=== PATIENT | female | born 1960 | race Caucasian/White ===

== ENCOUNTER 2020-06-18 12:52 | Outpatient (CLI) | payer BC, SELFPAY ==
--- NOTE | ~2020-06-18 | XR_ITS ---
XR chest 2V 06/18/2020 13:27 Indication: Possible Covid infection. Lower lobe pneumonia. Cough. Procedure: 2 view chest Comparison: 04/15/2017 Findings: Bibasilar infiltrates peripherally. Heart size normal. No edema, pleural effusion or pneumo thorax. No acute osseous abnormality. Impression: 1: Peripheral bibasilar infiltrates, suspicious for pneumonia. Reviewed, dictated and finalized at location A. ICAL LABORATORY TECHNICIAN Impression: 1: Peripheral bibasilar infiltrates, suspicious for pneumonia.
[2020-06-18 13:20] LABS: Basophils Percent Auto 0.2 % (0.2-1.2); Eosinophils Percent Auto 0.6 % (0-4.4); Hematocrit 40.8 % (37.0-47.0); Hemoglobin 13.7 g/dL (12.0-15.0); Immature Granulocyte Absolute 0.01 K/mm3 (0.00-0.031); Immature Granulocyte Percent A 0.2 % (0-0.5); Lymphocytes Absolute Auto 0.85 K/mm3 (0.9-3.2); Mean Corpuscular HGB Conc 33.6 g/dl (32-36); Mean Corpuscular Hemoglobin 28.8 pg (26-34); Mean Corpuscular Volume 85.9 fl (80-100); Mean Platelet Volume 9.9 fl (7.4-10.4); Monocytes Absolute Auto 0.3 K/mm3 (0.1-0.6); Monocytes Percent Auto 6.8 % (2.6-8.5); Neutrophils Absolute Auto 3.5 K/mm3 (1.3-6.7); Neutrophils Percent Auto 74.2 % (45.5-73.1); Platelet Count Result 160 k/mm3 (150-375); Red Blood Count 4.75 M/mm3 (4.2-5.4); Red Cell Distribution Width 12.8 % (11.5-14.5); White Blood Count 4.7 K/mm3 (4.5-10.0)
[2020-06-18 13:36] LABS: D Dimer 0.48 ug/mL (<0.48)
[2020-06-18 13:40] LABS: Alanine Aminotransferase 19 U/L (4-35); Alkaline Phosphatase 93 U/L (38-126); Anion Gap 9 mmol/L (8-16); Aspartate Amino Transferase 26 U/L (14-36); Bilirubin,Total 0.4 mg/dL (0.2-1.3); Blood Urea Nitrogen 14 mg/dL (7-17); CRP 1.2 mg/dL (<1.0); Calcium 9.5 mg/dL (8.4-10.2); Carbon Dioxide 26 mmol/L (22-30); Chloride 102 mmol/L (98-107); Estimated Glomerular Filt Rate 51; Glucose 114 mg/dL (65-105); Potassium 3.8 mmol/L (3.4-5.0); Sodium 137 mmol/L (137-145)
[2020-06-18 15:36] LABS: Lactate Dehydrogenase 481 U/L (313-618)
== END 2020-06-18 12:53 | disposition home or self-care (01) ==
PROVIDERS: PCP Internal Medicine; Visit Provider Internal Medicine
DX: J18.9 Pneumonia, unspecified organism (principal); R91.8 Other nonspecific abnormal finding of lung field
CPT/HCPCS: 36415; 71046; 80053; 83615; 85025; 85380; 86140

== ENCOUNTER 2020-06-21 13:55 | Observation (INO) | payer BC, SELFPAY ==
--- NOTE | ~2020-06-21 | XR_ITS ---
XR chest 1V portable 06/21/2020 15:17 Indication: Covid Positive. Shortness of breath. Wheezing. Procedure: AP portable chest Comparison: 04/15/2017 Findings: There are bibasilar infiltrates or heart size normal. There is atherosclerosis. No acute os seous abnormality. Impression: 1: Bibasilar infiltrates may represent atelectasis and/or pneumonia. Reviewed, dictated and finalized at location A. NCE C[employer] DISPLAY BUILDER Impression: 1: Bibasilar infiltrates may represent atelectasis and/or pneumonia.
[2020-06-21 13:59] VITALS: BP 141/85; PULSE 125; RESP 28; TEMP 35.9; O2SAT 97
--- NOTE | 2020-06-21 14:53 | ECG_ITS ---
Measurements Intervals [place] Rate: 105 P: 30 OK: 169 QRS: 18 QRSD: 88 T: 32 QT: 328 QTc: 434 Interpretive Statements SINUS TACHYCARDIA BORDERLINE ECG Electronically Signed On 06-21-2020 16:49:07 BLOCK CHOPPER HAND by Jose Ashley D.O.
[2020-06-21 15:14] LABS: Basophils Percent Auto 0.2 % (0.2-1.2); Eosinophils Percent Auto 0.4 % (0-4.4); Hematocrit 39.8 % (37.0-47.0); Hemoglobin 13.1 g/dL (12.0-15.0); Immature Granulocyte Absolute 0.02 K/mm3 (0.00-0.031); Immature Granulocyte Percent A 0.4 % (0-0.5); Lymphocytes Absolute Auto 0.84 K/mm3 (0.9-3.2); Lymphocytes Percent Auto 15.1 % (18.3-44.2); Mean Corpuscular HGB Conc 32.9 g/dl (32-36); Mean Corpuscular Hemoglobin 28.6 pg (26-34); Mean Corpuscular Volume 86.9 fl (80-100); Mean Platelet Volume 10.1 fl (7.4-10.4); Monocytes Absolute Auto 0.4 K/mm3 (0.1-0.6); Monocytes Percent Auto 7.5 % (2.6-8.5); Neutrophils Absolute Auto 4.3 K/mm3 (1.3-6.7); Neutrophils Percent Auto 76.4 % (45.5-73.1); Platelet Count Result 190 k/mm3 (150-375); Red Blood Count 4.58 M/mm3 (4.2-5.4); Red Cell Distribution Width 12.9 % (11.5-14.5); White Blood Count 5.6 K/mm3 (4.5-10.0)
[2020-06-21 15:27] LABS: Anion Gap 7 mmol/L (8-16); Blood Urea Nitrogen 13 mg/dL (7-17); Calcium 9.6 mg/dL (8.4-10.2); Carbon Dioxide 27 mmol/L (22-30); Chloride 104 mmol/L (98-107); Estimated CRCL calculation 63 ml/min; Estimated Glomerular Filt Rate > 60; Glucose 119 mg/dL (65-105); Potassium 3.7 mmol/L (3.4-5.0); Sodium 138 mmol/L (137-145)
--- NOTE | 2020-06-21 16:06 | ED.SOB ---
HPI - SOB/Dyspnea General Chief Complaint: Shortness of Breath/Dyspnea Stated Complaint: + COVID, not better Time Seen by Provider: 06/21/20 14:22 Source: patient Mode of arrival: ambulatory Limitations: no limitations History of Present Illness HPI Narrative: 60-year-old with a history of asthma, hyperlipidemia been feeling sick since June 04 had initial Covid test 10 days after which was negative however it was repeated 2 days after and turned out to be positive since this morning patient has been having more shortness of breath and cough. She states that her oxygen saturations were 88 to 90% on room air. Patient states that she had outpatient lab and x-rays done which showed pneumonia. She was advised to come to the ER by her primary doctor for possible admission. She presently denies any nausea, vomiting or abdominal pain or chest pain MD elicited complaint: shortness of breath and cough Pertinent past history: asthma Timing: constant Severity: moderate Exacerbating factors: exertion Relieving factors: rest Known history of: asthma Related Data Home oxygen amount: none Home Medications Medication Instructions Recorded Confirmed albuterol sulfate 06/21/20 amitriptyline 30 mg 06/21/20 amlodipine 06/21/20 atorvastatin 06/21/20 fluticasone furoate-vilanterol INHALATION 06/21/20 [Breo Ellipta] Allergies Allergy/AdvReac Type Severity Reaction Status Date / Time levofloxacin Allergy Unknown Unknown Verified 06/21/20 16:04 nitrofurantoin Allergy Unknown Unknown Verified 06/21/20 16:04 loteprednol [From Alrex] Allergy Unknown Verified 06/21/20 16:04 Review of Systems Review of Systems: All systems reviewed & are unremarkable except as noted in HPI and below Constitutional: Constitutional: Reports no additional constitutional complaints Cardiovascular: Cardiovascular: Reports no additional cardiovascular complaints Gastrointestinal: Gastrointestinal: Reports no additional gastrointestinal complaints Musculoskeletal: Musculoskeletal: Reports no additional musculoskeletal complaints Psychiatric: Psychiatric: Reports no additional psychiatric complaints Allergic/Immunologic: Allergic/Immunologic: Reports no additional allergic/immunologic complaints [facility] Family History Family History Mother Family history of elevated blood lipids Family history of malignant neoplasm of breast in first degree relative Asthma Family history of allergic disorder Father Family history of diabetes mellitus in first degree relative Family history of congestive heart failure Diabetes mellitus Social History Social History Smoking status: Never smoker Alcohol intake: current Exam Narrative: Exam Narrative: GENERAL: Well-appearing, well-nourished, and in no acute distress. HEAD: Normocephalic, atraumatic. EYES: PERRLA and EOMI NECK: Supple. CHEST: Clear to auscultation. No respiratory distress. HEART: Regular rate and rhythm. No murmur heard. Normal peripheral pulses. ABDOMEN: Soft, nontender, nondistended, normal active bowel sounds. EXTREMITIES: Normal range of motion. No edema. SKIN: Warm, dry, no rash. NEURO: No focal deficits. Alert and oriented x3. PSYCH: Normal mood and affect. Course Course Emergency Course: Inform patient about her lab work x-rays we will admit her to the hospital for further management and she agreed Vital Signs Vital signs: Vital Signs Temperature 35.9 C L 06/21/20 13:59 Pulse Rate 125 H 06/21/20 13:59 Respiratory Rate 28 H 06/21/20 13:59 Blood Pressure 141/85 H 06/21/20 13:59 Pulse Oximetry 97 06/21/20 13:59 Temperature 35.9 C L 06/21/20 13:59 Pulse Rate 125 H 06/21/20 13:59 Respiratory Rate 28 H 06/21/20 13:59 Blood Pressure 141/85 H 06/21/20 13:59 Pulse Oximetry 97 06/21/20 13:59 MDM - SOB/Dyspnea Differential Diagnosis Differential diagnosis: Likely acute exacerbation of ch
[2020-06-21 16:07] VITALS: BP 127/83; PULSE 102; PULSE 90; RESP 24; TEMP 36.4; O2SAT 99
[2020-06-21 16:57] VITALS: BP 133/79; PULSE 89; RESP 27; TEMP 36.2; O2SAT 97
--- NOTE | 2020-06-21 16:58 | PC.NURSE ---
Blood cultures drawn. Patient was educated that one set will be drawn from each arm at separate times. Patient aware and in agreement with plan. Cultures taken from Right antecubital area and left forearm area.
[2020-06-21] MEDS: DEXAMETHASONE SOD PHOS INJ 4 MG/ML VIAL 6 MG IV PUSH (17:04)
[2020-06-21] MEDS: SODIUM CHLORIDE 0.9% IV 1,000 ML 75 ML IV CONT (17:07)
[2020-06-21 17:21] LABS: Alanine Aminotransferase 16 U/L (4-35)
[2020-06-21 17:36] VITALS: BP 130/72; PULSE 100; RESP 18; TEMP 36.8; O2SAT 100
[2020-06-21 17:44] VITALS: O2SAT 98
--- NOTE | 2020-06-21 17:52 | ADMGEN ---
This patient, Thi Hubbard, was admitted to [facility] Surg Room 321-01. Patient/family oriented to hospital policies and general routines including ID bracelet, bed and alarms, visiting hours, pain management, procedures, bathroom and other care routines, personal items, smoking policy, room service/diet, and visiting hours. Information on how to activate the Rapid Response Team has been discussed. Patient/Family are encouraged to report perceived risks to care and to ask questions if they do not understand what they are told or what they should do.
[2020-06-21] MEDS: REMDESIVIR 200 MG/NS 250 ML 200 MG/250 ML BAG 250 MG IVPB (18:16)
[2020-06-21 20:00] VITALS: BP 126/75; PULSE 95; RESP 20; TEMP 37.1; O2SAT 96
--- NOTE | 2020-06-21 23:38 | PM.IMHP ---
H&P: HPI History of Present Illness Date/Time: 06/21/20 23:38 Chief Complaint: shortness of breath. Narrative: This is a 60 year old female with known history of Asthma, HTN, and hyperlipidemia who presented to the hospital with a complaint of increased exertional shortness of breath after testing positive for COVID-19 this past Wednesday. Initially she began to feel sick in the beginning of June and reported that she had a loss of taste and chills and body aches at that time. Now she has a productive cough of dark sputum and worsening shortness of breath. Her PCP encouraged her to come to the hospital for possible admisison. She found that she was desaturating down to 88% on room air at home on pulse oximetry. The patient denies any fevers, abdominal pain, nausea, vomiting, diarrhea, dysuria, rectal bleeding or LE swelling. She does admit to having some pleuritic chest pain which has been ongoing and she attributes this to her coughing. The patient was evaluated in the ER and CXR demonstrated bibasilar infiltrates may represent atelectasis and/or pneumonia. She has not required any supplemental oxygen since she has been at the hospital. On my encounter with her she states she is feeling much better. No other complaints. Review of Systems Review of Systems: All systems reviewed & are unremarkable except as noted in HPI and below PMFSH Past Medical History Medical History (Updated 06/21/20 @ 23:47 by Vini Clement MD) Asthma HTN (hypertension) with goal to be determined Hyperlipidemia Family History Family History Mother Family history of elevated blood lipids Family history of malignant neoplasm of breast in first degree relative Asthma Family history of allergic disorder Father Family history of diabetes mellitus in first degree relative Family history of congestive heart failure Diabetes mellitus Social History Social History Smoking status: Never smoker Second hand tobacco smoke exposure: No Alcohol intake: current Drinks per week: 1 Substance use: never Gender identity (if verbalized by the patient): Female Spiritual care concerns: No Comments past surgical history is reviewed and noncontributory. Meds Home Medications and Allergies Home Medications Medication Instructions Recorded Confirmed Type Acidophilus Probiotic 1 tablet PO DAILY 06/21/20 06/21/20 History albuterol sulfate 2.5 mg INHALATION Q4-5H 06/21/20 06/21/20 History amitriptyline 30 mg PO DAILY 06/21/20 06/21/20 History amlodipine 5 mg PO DAILY 06/21/20 06/21/20 History aspirin 81 mg PO DAILY 06/21/20 06/21/20 History atorvastatin 20 mg PO DAILY 06/21/20 06/21/20 History cholecalciferol (vitamin D3) 2,000 mg PO DAILY 06/21/20 06/21/20 History famotidine [Pepcid] 20 mg PO DAILY 06/21/20 06/21/20 History fluticasone furoate-vilanterol 1 inh INHALATION DAILY 06/21/20 06/21/20 History [Breo Ellipta] Allergies Allergy/AdvReac Type Severity Reaction Status Date / Time levofloxacin Allergy Unknown Unknown Verified 06/21/20 18:13 nitrofurantoin Allergy Unknown Unknown Verified 06/21/20 18:13 loteprednol [From Alrex] Allergy Unknown Verified 06/21/20 18:13 Vital Signs Vital Signs - 24 hr 06/21/20 13:59 06/21/20 16:07 06/21/20 16:57 Temperature 35.9 C L 36.4 C L 36.2 C L Pulse Rate 125 H 90 89 Respiratory Rate 28 H 24 H 27 H Blood Pressure 141/85 H 127/83 133/79 Pulse Oximetry 97 99 97 06/21/20 17:36 06/21/20 17:44 06/21/20 20:00 Temperature 36.8 C 37.1 C Pulse Rate 100 95 Respiratory Rate 18 20 Blood Pressure 130/72 126/75 Pulse Oximetry 100 98 96 Exam Const: General: cooperative, no acute distress, alert, awake and ill appearing Nutritional Appearance: well nourished Orientation/consciousness: patient oriented x3 HENMT: Head: normal to inspection General nose exam: Normal
[2020-06-22] MEDS: AMITRIPTYLINE HCL 10 MG TABLET 30 MG PO (00:40)
[2020-06-22 00:56] VITALS: BP 119/70; PULSE 99; RESP 20; TEMP 36.4; O2SAT 97
[2020-06-22] MEDS: ALBUTEROL SULFATE (*SP) AEROSOL 1 PUFF 2 PUFF INHALATION ×2 (02:38→11:32)
[2020-06-22 02:46] VITALS: O2SAT 96
[2020-06-22 04:00] VITALS: BP 117/58; PULSE 85; RESP 20; TEMP 36.4; O2SAT 95
--- NOTE | 2020-06-22 05:55 | PHAR ---
MARIVEL ELLIPTA (fluticasone furoate 200 mcg/vilanterol 25 mcg) VERIFIED IN PHARMACY AND SENT BACK TO FLOOR. 7 DOSES REMAINING AT THE TIME OF THIS NOTE (DAP)
[2020-06-22 06:57] LABS: Basophils Percent Auto 0.3 % (0.2-1.2); Hematocrit 34.5 % (37.0-47.0); Hemoglobin 11.5 g/dL (12.0-15.0); Immature Granulocyte Absolute 0.01 K/mm3 (0.00-0.031); Immature Granulocyte Percent A 0.3 % (0-0.5); Lymphocytes Absolute Auto 0.56 K/mm3 (0.9-3.2); Lymphocytes Percent Auto 15.9 % (18.3-44.2); Mean Corpuscular HGB Conc 33.3 g/dl (32-36); Mean Corpuscular Hemoglobin 28.7 pg (26-34); Mean Platelet Volume 9.8 fl (7.4-10.4); Monocytes Absolute Auto 0.2 K/mm3 (0.1-0.6); Monocytes Percent Auto 6.3 % (2.6-8.5); Neutrophils Absolute Auto 2.7 K/mm3 (1.3-6.7); Neutrophils Percent Auto 77.2 % (45.5-73.1); Platelet Count Result 190 k/mm3 (150-375); Red Blood Count 4.01 M/mm3 (4.2-5.4); Red Cell Distribution Width 12.6 % (11.5-14.5); White Blood Count 3.5 K/mm3 (4.5-10.0)
[2020-06-22] MEDS: SODIUM CHLORIDE 0.9% IV 1,000 ML 75 ML IV CONT (07:10)
[2020-06-22 07:17] LABS: Alanine Aminotransferase 15 U/L (4-35); Albumin Level 3.4 g/dL (3.5-5.1); Alkaline Phosphatase 79 U/L (38-126); Anion Gap 8 mmol/L (8-16); Aspartate Amino Transferase 23 U/L (14-36); Bilirubin,Total 0.4 mg/dL (0.2-1.3); Blood Urea Nitrogen 13 mg/dL (7-17); Calcium 8.4 mg/dL (8.4-10.2); Carbon Dioxide 22 mmol/L (22-30); Chloride 108 mmol/L (98-107); Estimated CRCL calculation 71 ml/min; Estimated Glomerular Filt Rate > 60; Glucose 131 mg/dL (65-105); Potassium 4.4 mmol/L (3.4-5.0); Sodium 138 mmol/L (137-145)
[2020-06-22 08:00] VITALS: BP 102/60; PULSE 70; RESP 18; TEMP 36.8; O2SAT 94; O2SAT 97
[2020-06-22] MEDS: ACIDOPHILUS/BULGARICUS CHEWABLE TABLET 1 TABLET PO (08:51)
[2020-06-22] MEDS: amLODIPine BESYLATE 5 MG TABLET PO (08:51)
[2020-06-22] MEDS: CHOLECALCIFEROL 1,000 UNITS TABLET 2000 UNITS PO (08:51)
[2020-06-22] MEDS: FAMOTIDINE 20 MG TABLET PO (08:51)
[2020-06-22] MEDS: ATORVASTATIN 20 MG TABLET PO (08:51)
[2020-06-22] MEDS: ENOXAPARIN 40 MG/0.4 ML SYRINGE SUB-Q (08:52)
[2020-06-22] MEDS: ASPIRIN 81 MG ENTERIC TABLET PO (11:27)
[2020-06-22 12:00] VITALS: BP 108/56; PULSE 89; RESP 22; TEMP 36.9; O2SAT 97
--- NOTE | 2020-06-22 13:17 | PM.DS ---
DS: Admitting Diagnosis Admitting Diagnosis Admitting Diagnosis: COVID pneumonia DS: Discharge Diagnosis Discharge Diagnosis (1) Pneumonia due to 2019-nCoV: Code(s): U07.1 - COVID-19; J12.89 - Other viral pneumonia Status: Acute Assessment and Plan: The patient has been placed in observation status.She has not required any oxygen during her stay and has maintained adequate saturations. She was given one dose of remdesivir in ED, although patient not on supplemental oxygen and outside window from when symptoms first started. Dexamethasone initiated in ED as well. Remdesivir has been discontinued. Clinically she has improved and states she feels much better. Will send home with 5 days of dexamethasone for underlying asthma. Continue supportive care. Rec follow up with PCP in 1-2 weeks Rec continue to monitor O2 sats at home (2) HTN (hypertension) with goal to be determined: Code(s): I10 - Essential (primary) hypertension Status: Chronic Assessment and Plan: BP 100s sys Continue amlodipine. (3) Hyperlipidemia: Qualifiers: Hyperlipidemia type: unspecified Qualified Code(s): E78.5 - Hyperlipidemia, unspecified Code(s): E78.5 - Hyperlipidemia, unspecified Status: Chronic Assessment and Plan: Continue atorvastatin PO (4) Asthma: Qualifiers: Asthma complication type: unspecified Asthma persistence: unspecified Asthma severity: unspecified severity Qualified Code(s): J45.909 - Unspecified asthma, uncomplicated Code(s): J45.909 - Unspecified asthma, uncomplicated Status: Chronic Assessment and Plan: Continue bronchodilators and breo. Will send with 5 day course of dexamethasone 6 mg DS: Summary Hospital Course Reason for hospitalization: COVID pneumonia Hospital Course: Date of arrival: 06/21/20 Date of discharge: 06/22/20 Patient is a 60 yo F with history of asthma, HTN, and hyperlipidemia who presented to the hospital on 06/21 with a complaint of increased exertional shortness of breath after testing positive for COVID-19 on 06/18. Her symptoms had started on 06/04 with SOB and loss of taste and smell. While in the ED, patient was maintaining adequate O2 saturations on RA. CXR showed similar findings of bibasilar lung infiltrates suggesting pneumonia. Patient was given one dose of Remdesivir, dexamethasone, and azithromycin. Patient admitted under this setting of COVID pneumonia. Please see H&P for further details. Patient was admitted to the hospitalist service for further management/treatment. Remdesivir was discontinued as patient did not meet criteria for treatment. Azithromycin was discontinued as it was felt bacterial pneumonia felt to be less likely. Given her asthma and shortness of breath, it was felt to be prudent continue dexamethasone after discharge (was to continue through 06/27). Patient had significant improvement in her respiratory symptoms and remained on RA throughout her stay. She was to be discharged home with follow up with PCP Patient and family were agreeable and comfortable with plan for discharge. Patient hemodynamically stable and in improved condition for discharge on 06/22 Status at Discharge Overall status at discharge: patient is progressing back to baseline Time Spent with Patient Time attestation: Total time spent providing and/or coordinating discharge services: Time spent: Greater than 30 minutes Exam Narrative: Exam Narrative: General: Patient sitting upright in bed in no acute distress. HEENT: Normocephalic, EOMI, oral mucosa moist. Cardiovascular: Rate and rhythm are regular. No notable murmur, rub, or gallop. Respiratory: Lungs clear to auscultation all parker. Diminished breath sounds. Non-labo
[2020-06-22] MEDS: DEXAMETHASONE 2 MG TABLET 6 MG PO (15:46)
== END 2020-06-22 16:30 | disposition home or self-care (01) ==
LOC: ANHED 16:12 → ANH3MEDSUR 17:10
PROVIDERS: Admitting Provider Internal Medicine; Emergency Provider Family Medicine; PCP Internal Medicine; Visit Provider Physician Assistant
DX: U07.1 COVID-19 (principal); J12.89 Other viral pneumonia; J45.909 Unspecified asthma, uncomplicated; I10 Essential (primary) hypertension; E78.5 Hyperlipidemia, unspecified
CPT/HCPCS: 36415; 71045; 80048; 80053; 84460; 85025; 87040; 93005; 94640; 96361; 96365; 96367; 96372; 96375; 99285; A9270; G0378; J0456; J1100; J1650; J7030; J8540

== ENCOUNTER → 2021-03-27 11:25 | Outpatient (CLI) | payer BC, SELFPAY ==
--- NOTE | ~2021-03-27 | DEXA_ITS ---
Bone Density Report Name: Thi Hubbard Age: 61 Sex: Female Ethnicity: White Date of : 1960 Indication: osteopenia; height loss; asthma or emphysema; hysterectomy; postmenopausal Referring Provider: BIPIN, BENNY Mathews Study: Bone densitometry was performed. Exam Date: March 27, 2021 Accession number: [id number] Bone Density: Region BMD T-score Z-score Classification AP Spine (L1-L4) 0.834 -1.9 -0.4 Osteopenia Femoral Neck (Left) 0.678 -1.5 -0.2 Osteopenia Total Hip (Left) 0.858 -0.7 0.3 Normal Femoral Neck (Right) 0.630 -2.0 -0.6 Osteopenia Total Hip (Right) 0.786 -1.3 -0.3 Osteopenia Total Hip Mean 0.822 -1.0 0.0 Normal World Health Organization criteria for BMD impression classify patients as: Normal (T-score at or above -1.0), Osteopenia (T-score between -1.0 and -2.5), or Osteoporosis (T-score at or below -2.5). 10-year Fracture Risk(1): Major Osteoporotic Fracture 8.8% Hip Fracture 1.0% Reported Risk Factors: [place] (), Neck BMD=0.630, BMI=36.0 (1) FRAX(R) Version 3.08. Fracture probability calculated for an untreated patient. Fracture probability may be lower if the patient has received treatment. Previous Exams: Region Exam Age BMD T-score BMD Change BMD Change Date g/cm2 vs Baseline vs Previous AP Spine(L1-L4) 03/27/2021 61 0.834 -1.9 -0.032 -0.005 09/22/2018 58 0.839 -1.9 -0.026 -0.026 03/12/2016 56 0.866 -1.6 Total Hip(Left) 03/27/2021 61 0.858 -0.7 -0.038 0.005 09/22/2018 58 0.853 -0.7 -0.043 -0.043 03/12/2016 56 0.896 -0.4 Total Hip(Right) 03/27/2021 61 0.786 -1.3 -0.027 -0.010 09/22/2018 58 0.796 -1.2 -0.017 -0.017 03/12/2016 56 0.813 -1.1 *Denotes significance at 95% confidence level, LSC for AP Spine = 0.022 g/cm2, LSC for Total Hip = 0.027 g/cm2 Clinical Information Provided by Patient: Has used the following medications: Vitamin D, Calcium Has the following medical conditions: Asthma or Emphysema, Hysterectomy Patient maximum height was 64 Menopause Age: 46 No regular weight bearing exercise Drinks caffeinated beverages Onset of menses at age 11 Number of children 2 Impression: The patient has low bone mass, based on the Right Femoral Neck T-score. The patient has an estimated ten-year risk of hip fracture of 1% and an estimated ten-year risk of
== END ==
PROVIDERS: PCP Internal Medicine; Visit Provider Internal Medicine
DX: M85.88 Other specified disorders of bone density and structure, other site (principal); M85.851 Other specified disorders of bone density and structure, right thigh; M85.852 Other specified disorders of bone density and structure, left thigh
CPT/HCPCS: 77080

== ENCOUNTER 2023-02-28 14:14 | Emergency (ER) | payer BC, SELFPAY ==
--- NOTE | ~2023-02-28 | CT_ITS ---
EXAMINATION: CT abdomen pelvis w con DATE: 02/28/2023 15:58 INDICATION: Left lower quadrant abdominal pain TECHNIQUE: Computed tomography (CT) of the abdomen and pelvis was performed with 100 mL Omnipaque-350 intravenous contrast. Automated exposure control and iterative reconstruction technique were employe d. The dose-length product was 1062.17 mGy-cm. COMPARISON: 01/24/2016 FINDINGS: Mild discoid atelectasis at the lingula. Heart size is normal. No pericardial or pleural effusion. Sm all sliding-type hiatal hernia. 5 cm cyst in the right hepatic lobe and a few subcentimeter cysts in the left hepatic lobe. Small calcified gallstone at the dependent fundus of the normal gallbladder. S pleen, pancreas and bilateral adrenal glands are normal. 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 Scattered cortic al scarring and multiple parapelvic cysts at the left kidney, the former likely sequela of prior infe ction or infarction. 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 There is extensive colonic diverticulosis. There is dominant wall thickening and infl ammatory stranding along a short segment of mid sigmoid colon consistent with diverticulitis. Small b owel and appendix are normal. The uterus is not identified and has likely been surgically resected. B ladder and bilateral adnexa are unremarkable. Trace amount of likely reactive free fluid in the deep pelvis. No abscess or free intraperitoneal gas. No pathologically enlarged abdominal or pelvic lympha denopathy. Moderate lower thoracic and mild lumbar spondylosis. IMPRESSION: 1. Radiographically uncomplicated sigmoid diverticulitis. 2. Small sliding-type hiatal hernia. 3. Cholelithiasis. 4. 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 Reviewed, dictated and finalized at location A. IMPRESSION: 1. Radiographically uncomplicated sigmoid diverticulitis. 2. Small sliding-type hiatal hernia. 3. Cholelithiasis. 4. 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
[2023-02-28 14:16] VITALS: BP 132/79; PULSE 87; RESP 17; TEMP 36.6; O2SAT 99
[2023-02-28] MEDS: fentaNYL CITRATE INJ (*CRX) 100 MCG/2 ML VIAL 50 MCG IV PUSH (15:02)
[2023-02-28 15:03] LABS: Appearance Urine Clear (Clear); Bacteria Urine None Seen /hpf; Bilirubin Urine Negative (Negative); Blood Urine Negative (Negative); Color Urine Yellow (Yellow); Glucose Urine UA Negative (Negative); Ketones Urine Trace mg/dL (Negative); Leukocyte Esterase Ur Negative LEU/UL (Negative); Nitrate Urine Negative (Negative); Non Pathogenic Casts 0-2; Protein Urine 1+ mg/dL (Negative); RBC Urine 0-2 /hpf (0-2); Specific Grav Ur 1.032 (1.001-1.035); Squamous Epithelial Cell Urine None seen /hpf (Few); WBC Urine 0-5 /hpf; pH Urine 5.5 (5.0-9.0)
[2023-02-28 15:05] LABS: Add Urine Microscopic? YES
[2023-02-28 15:12] LABS: Basophils Percent Auto 0.3 % (0.2-1.2); Eosinophils Absolute Auto 0.2 K/mm3 (0-0.3); Eosinophils Percent Auto 1.7 % (0-4.4); Hematocrit 40.8 % (37.0-47.0); Hemoglobin 13.2 g/dL (12.0-15.0); Immature Granulocyte Absolute 0.03 K/mm3 (0.00-0.031); Immature Granulocyte Percent A 0.3 % (0-0.5); Lymphocytes Absolute Auto 1.58 K/mm3 (0.9-3.2); Lymphocytes Percent Auto 13.6 % (18.3-44.2); Mean Corpuscular HGB Conc 32.4 g/dl (32-36); Mean Corpuscular Hemoglobin 28.9 pg (26-34); Mean Corpuscular Volume 89.3 fl (80-100); Mean Platelet Volume 10.7 fl (7.4-10.4); Monocytes Percent Auto 8.7 % (2.6-8.5); Neutrophils Absolute Auto 8.8 K/mm3 (1.3-6.7); Neutrophils Percent Auto 75.4 % (45.5-73.1); Platelet Count Result 200 k/mm3 (150-375); Red Blood Count 4.57 M/mm3 (4.2-5.4); Red Cell Distribution Width 13.4 % (11.5-14.5); White Blood Count 11.6 K/mm3 (4.5-10.0)
[2023-02-28 15:22] LABS: Alanine Aminotransferase 18 U/L (6-35); Albumin Level 3.7 g/dL (3.5-5.1); Alkaline Phosphatase 69 U/L (38-126); Anion Gap 6 mmol/L (8-16); Aspartate Amino Transferase 21 U/L (14-36); Bilirubin,Total 0.7 mg/dL (0.2-1.3); Blood Urea Nitrogen 19 mg/dL (7-17); Calcium 8.8 mg/dL (8.4-10.2); Carbon Dioxide 22 mmol/L (22-30); Chloride 106 mmol/L (98-107); Estimated CRCL calculation 62 ml/min; Estimated Glomerular Filt Rate > 60; Glucose 115 mg/dL (65-110); Lipase 81 U/L (23-300); Potassium 3.9 mmol/L (3.4-5.0); Sodium 134 mmol/L (137-145)
--- NOTE | 2023-02-28 15:43 | ED.ABDPAIN ---
HPI - Abdominal Pain General Chief Complaint: Abdominal Pain Stated Complaint: diverticulitis flare up Time Seen by Provider: 02/28/23 14:21 History of Present Illness HPI narrative: Patient is a 63-year-old female who presents to the ER with reports of left-sided abdominal pain. Ongoing over the last 2 days. Feels similar to her previous diverticulitis. Reports sensation she needs to defecate or urinate but has in fact been constipated. No dysuria denies fevers or chills or sweats. Pain is worse with movement. No alleviating factors. Related Data Home Medications Medication Instructions Recorded Confirmed Acidophilus Probiotic 1 tablet PO DAILY 06/21/20 06/21/20 albuterol sulfate 2.5 mg/3 mL 2.5 mg inhalation Q4-5H 06/21/20 06/21/20 (0.083 %) solution for nebulization amitriptyline 10 mg tablet 30 mg PO DAILY 06/21/20 06/21/20 amlodipine 5 mg tablet 5 mg PO DAILY 06/21/20 06/21/20 aspirin 81 mg tablet 81 mg PO DAILY 06/21/20 06/21/20 atorvastatin 20 mg tablet 20 mg PO DAILY 06/21/20 06/21/20 cholecalciferol (vitamin D3) 2,000 mg PO DAILY 06/21/20 06/21/20 famotidine 20 mg tablet (Pepcid) 20 mg PO DAILY 06/21/20 06/21/20 fluticasone furoate 200 1 inh inhalation DAILY 06/21/20 06/21/20 mcg-vilanterol 25 mcg/dose inhalation powder (Breo Ellipta) Allergies Allergy/AdvReac Type Severity Reaction Status Date / Time levofloxacin Allergy Unknown Unknown Verified 06/21/20 18:13 nitrofurantoin Allergy Unknown Unknown Verified 06/21/20 18:13 loteprednol [From Alrex] Allergy Unknown Verified 06/21/20 18:13 Review of Systems Review of Systems: All systems reviewed & are unremarkable except as noted in HPI and below Constitutional: Constitutional: Denies chills, Denies fatigue and Denies fever(s) Cardiovascular: Cardiovascular: Denies chest pain, Denies rapid heart rate and Denies radiating jaw, neck or arm pain Respiratory: Respiratory: Denies cough and Denies dyspnea Gastrointestinal: Gastrointestinal: Reports abdominal pain, Reports constipation, Denies diarrhea, Denies nausea and Denies vomiting Genitourinary: Genitourinary: Reports nocturia, Denies dysuria, Denies pelvic pain and Denies flank pain PMFSH Past Medical History Medical History (Updated 02/28/23 @ 16:25 by Yunior Barrios MD) Asthma HTN (hypertension) with goal to be determined Hyperlipidemia Family History Family History Mother Family history of elevated blood lipids Family history of malignant neoplasm of breast in first degree relative Asthma Family history of allergic disorder Father Family history of diabetes mellitus in first degree relative Family history of congestive heart failure Diabetes mellitus Social History Social History Smoking status: Never smoker Second hand tobacco smoke exposure: No Alcohol intake: current Drinks per week: 1 Substance use: never Gender identity (if verbalized by the patient): Female Spiritual care concerns: No Exam Narrative: GENERAL: Well-appearing, well-nourished, and in no acute distress. HEAD: Normocephalic, atraumatic. EYES: PERRLA and EOMI. ENT: Nares clear, no rhinorrhea or epistaxis. Mucous membranes moist. NECK: Supple. CHEST: Clear to auscultation. No respiratory distress. HEART: Regular rate and rhythm. No murmur heard. Normal peripheral pulses. ABDOMEN: Soft, nontender, nondistended, normal active bowel sounds. EXTREMITIES: Normal range of motion. No edema. SKIN: Warm, dry, no rash. NEURO: No focal deficits. Alert and oriented x3. PSYCH: Normal mood and affect. Course Vital Signs Vital signs: Vital Signs Temperature 97.8 F 02/28/23 14:16 Pulse Rate 87 02/28/23 14:16 Respiratory Rate 17 02/28/23 14:16 Blood Pressure 132/79 02/28/23 14:16 Pulse Oximetry 99 02/28/23 14:16 Oxygen Delivery Room Air 02/28/23 14:16
== END 2023-02-28 17:00 | disposition home or self-care (01) ==
PROVIDERS: Emergency Provider Emergency Medicine; PCP Internal Medicine
DX: K57.92 Diverticulitis of intestine, part unspecified, without perforation or abscess without bleeding (principal); E78.5 Hyperlipidemia, unspecified; I10 Essential (primary) hypertension
CPT/HCPCS: 36415; 74177; 80053; 81001; 83690; 85025; 96374; 99284; J3010; Q9967

== ENCOUNTER → 2023-04-08 10:23 | Outpatient (CLI) | payer BC, SELFPAY ==
--- NOTE | ~2023-04-08 | DEXA_ITS ---
Bone Density Report Name: ISABEL MOONEY Age: 63 Sex: Female Ethnicity: White Date of : 1960 Indication: osteopenia; height loss; asthma or emphysema; hysterectomy; postmenopausal Referring Provider: GRAEME GRANDE Study: Bone densitometry was performed. Exam Date: April 08, 2023 Accession number: [id number] Bone Density: Region BMD T-score Z-score Classification AP Spine (L1-L4) 0.846 -1.8 -0.2 Osteopenia Femoral Neck (Left) 0.657 -1.7 -0.3 Osteopenia Total Hip (Left) 0.775 -1.4 -0.2 Osteopenia Femoral Neck (Right) 0.617 -2.1 -0.7 Osteopenia Total Hip (Right) 0.792 -1.2 -0.1 Osteopenia Total Hip Mean 0.784 -1.3 -0.2 Osteopenia World Health Organization criteria for BMD impression classify patients as: Normal (T-score at or above -1.0), Osteopenia (T-score between -1.0 and -2.5), or Osteoporosis (T-score at or below -2.5). 10-year Fracture Risk(1): Major Osteoporotic Fracture 9.6% Hip Fracture 1.3% Reported Risk Factors: [place] (), Neck BMD=0.617, BMI=35.7 (1) FRAX(R) Version 3.08. Fracture probability calculated for an untreated patient. Fracture probability may be lower if the patient has received treatment. Previous Exams: Region Exam Age BMD T-score BMD Change BMD Change Date g/cm2 vs Baseline vs Previous AP Spine(L1-L4) 04/08/2023 63 0.846 -1.8 -0.020 0.012 03/27/2021 61 0.834 -1.9 -0.032 -0.005 09/22/2018 58 0.839 -1.9 -0.026 -0.026 03/12/2016 56 0.866 -1.6 Total Hip(Left) 04/08/2023 63 0.775 -1.4 -0.121* -0.083 03/27/2021 61 0.858 -0.7 -0.038 0.005 09/22/2018 58 0.853 -0.7 -0.043 -0.043 03/12/2016 56 0.896 -0.4 Total Hip(Right) 04/08/2023 63 0.792 -1.2 -0.021 0.006 03/27/2021 61 0.786 -1.3 -0.027 -0.010 09/22/2018 58 0.796 -1.2 -0.017 -0.017 03/12/2016 56 0.813 -1.1 *Denotes significance at 95% confidence level, LSC for AP Spine = 0.022 g/cm2, LSC for Total Hip = 0.027 g/cm2 Clinical Information Provided by Patient: Has used the following medications: Vitamin D, Calcium Has the following medical conditions: Asthma or Emphysema, Hysterectomy Patient maximum height was 64 Menopause Age: 46 No regular weight bearing exercise Drinks caffeinated beverages Onset of menses at age 11 Number of children 1
== END ==
PROVIDERS: PCP Nurse Practitioner; Visit Provider Obstetrics & Gynecology Gynecology
DX: Z13.820 Encounter for screening for osteoporosis (principal); M85.88 Other specified disorders of bone density and structure, other site; M85.852 Other specified disorders of bone density and structure, left thigh; M85.851 Other specified disorders of bone density and structure, right thigh
CPT/HCPCS: 77080

== ENCOUNTER 2023-08-05 09:54 | Outpatient (CLI) | payer BC, SELFPAY ==
--- NOTE | ~2023-08-05 | MR_ITS ---
EXAMINATION: MR brain/brain stem wo con DATE: 08/05/2023 10:24 INDICATION: Memory loss. TECHNIQUE: Magnetic resonance imaging (MRI) of the brain and brainstem was performed without intraven ous contrast. COMPARISON: None. FINDINGS: There are scattered areas of nonspecific increased T2-weighted signal intensity in the cere bral white matter, which is within normal limits for the patient's age. There is no intracranial hemo rrhage, acute infarction, or abnormal intracranial mass lesion. The ventricles are normal in size. Th ere is mild mucosal thickening in the ethmoid sinuses. The orbits are normal. The mastoid air cells a re normal. IMPRESSION: 1. Normal aging brain. Reviewed, dictated and finalized at location A. CAL RECORDS TECH IMPRESSION: 1. Normal aging brain.
== END 2023-08-05 09:55 ==
PROVIDERS: PCP Internal Medicine; Visit Provider Internal Medicine
DX: R41.3 Other amnesia (principal)
CPT/HCPCS: 70551

== ENCOUNTER 2023-08-27 07:30 | Day surgery (SDC) | payer BC, SELFPAY ==
[2023-06-10 10:05] VITALS: BMI 34.5
--- NOTE | 2023-08-25 09:09 | SUR.PREOP ---
Patient called regarding upcoming procedure. Voicemail left regarding appointment times.
--- NOTE | 2023-08-26 20:38 | PM.HPGS ---
History of Present Illness History of Present Illness Consent: Risks, benefits, and alternatives have been discussed and questions answered. Patient agrees to proceed with procedure. Chief complaint: GERD,Dyskinesia of esophagus, Narrative: Thi Hubbard is a 63 year old female who has issues with GERD and a hiatal hernia.? She has a history of kidney disease status post nephrectomy, HPV, chronic cough, asthma, hypertension, history of diverticulitis, hyperlipidemia.? Surgical history including ectopic , myomectomy, , partial hysterectomy, and abdominal plasty.? She has a long history of chronic GERD.? She also has a chronic cough that is well controlled with amitriptyline 5 mg HS.? She had previously been on [id number] Nexium for a decade which did help her symptoms of GERD-but she stopped this several years ago after reading that can cause dementia and chronic kidney disease and with her only having 1 kidney she discontinued it.? She is now taking famotidine 20 mg daily and was taking 10-15 Tums nightly. EGD 6 years ago was unremmarkable She is also due for colon cancer screening. Review of Systems Review of Systems: All systems reviewed & are unremarkable except as noted in HPI and below PMFSH Past Medical History Medical History Asthma Dyskinesia of esophagus Gastroesophageal reflux disease Hiatal hernia HTN (hypertension) with goal to be determined Hx of diverticulitis of colon Hyperlipidemia Obesity Umbilical hernia Family History Family History Mother Family history of elevated blood lipids Family history of malignant neoplasm of breast in first degree relative Asthma Family history of allergic disorder Father Family history of diabetes mellitus in first degree relative Family history of congestive heart failure Diabetes mellitus Social History Social History Smoking status: Never smoker Second hand tobacco smoke exposure: No Alcohol intake: current Drinks per week: 2 Substance use: never Substance use type: does not use Living arrangements: with family Gender identity (if verbalized by the patient): Female Spiritual care concerns: No Meds Home Medications and Allergies Home Medications Medication Instructions Recorded Confirmed Type Acidophilus Probiotic 1 tablet PO DAILY 06/21/20 08/02/23 History albuterol sulfate 2.5 mg/3 mL 2.5 mg inhalation Q4-5H 06/21/20 08/02/23 History (0.083 %) solution for nebulization amlodipine 5 mg tablet 5 mg PO DAILY 06/21/20 08/02/23 History aspirin 81 mg tablet 81 mg PO DAILY 06/21/20 08/02/23 History atorvastatin 20 mg tablet 20 mg PO DAILY 06/21/20 08/02/23 History cholecalciferol (vitamin D3) 2,000 mg PO DAILY 06/21/20 08/02/23 History fluticasone furoate 200 1 inh inhalation DAILY 06/21/20 08/02/23 History mcg-vilanterol 25 mcg/dose inhalation powder (Breo Ellipta) alpha lipoic acid 600 mg tablet 600 mg PO DAILY 05/06/23 08/02/23 History calcium carbonate 600 mg calcium 600 mg PO DAILY 05/06/23 08/02/23 History (1,500 mg) tablet (Calcium) calcium polycarbophil 625 mg 1,250 mg PO DAILY 05/06/23 08/02/23 History tablet (FiberCon) famotidine 20 mg tablet 20 mg PO BID #60 tabs 05/06/23 08/02/23 Rx fexofenadine 60 mg tablet (Elysia 60 mg PO Q12H 05/06/23 08/02/23 History Allergy) amitriptyline 10 mg tablet 5 mg PO DAILY 06/10/23 08/02/23 History Allergies Allergy/AdvReac Type Severity Reaction Status Date / Time levofloxacin Allergy Unknown Unknown Verified 08/27/23 07:43 nitrofurantoin Allergy Unknown Unknown Verified 08/27/23 07:43 loteprednol [From Alrex] Allergy Unknown Verified 08/27/23 07:43 Exam Const: General: alert Orientation/consciousness: patient oriented x3 Resp: Auscultation: clear to auscultation bilaterally Cardi
[2023-08-27 07:43] VITALS: BP 123/78; PULSE 67; RESP 16; TEMP 36.3; O2SAT 98
[2023-08-27] MEDS: LACTATED RINGERS 1,000 ML 150 ML IV CONT (07:53)
--- NOTE | 2023-08-27 08:25 | WPDANESEPPF ---
Anes - Initial Pre Proc Eval Procedure: Operation Date: 08/27/23 09:00 Proposed Procedures p Esophagogastroduodenoscopy & Colonoscopy - Luis Gee MD Date/Time: 08/27/23 08:25 Surgeon: Luis Gee MD Pre Op Diagnosis: GERD,Dyskinesia of esophagus, Patient Data Age: 63 Gender: F Height: 1.6 m Weight: 86.8 kg Last Vital Signs Temp 97.3 F L 08/27/23 07:43 Pulse 67 08/27/23 07:43 Resp 16 08/27/23 07:43 BP 123/78 08/27/23 07:43 Pulse Ox 98 08/27/23 07:43 O2 Del Method Room Air 08/27/23 07:43 Allergies Allergy/AdvReac Type Severity Reaction Status Date / Time levofloxacin Allergy Unknown Unknown Verified 08/27/23 07:43 nitrofurantoin Allergy Unknown Unknown Verified 08/27/23 07:43 loteprednol [From Alrex] Allergy Unknown Verified 08/27/23 07:43 Home Medications Medication Instructions Recorded Confirmed Type Acidophilus Probiotic 1 tablet PO DAILY 06/21/20 08/02/23 History albuterol sulfate 2.5 mg/3 mL 2.5 mg inhalation Q4-5H 06/21/20 08/02/23 History (0.083 %) solution for nebulization amlodipine 5 mg tablet 5 mg PO DAILY 06/21/20 08/02/23 History aspirin 81 mg tablet 81 mg PO DAILY 06/21/20 08/02/23 History atorvastatin 20 mg tablet 20 mg PO DAILY 06/21/20 08/02/23 History cholecalciferol (vitamin D3) 2,000 mg PO DAILY 06/21/20 08/02/23 History fluticasone furoate 200 1 inh inhalation DAILY 06/21/20 08/02/23 History mcg-vilanterol 25 mcg/dose inhalation powder (Breo Ellipta) alpha lipoic acid 600 mg tablet 600 mg PO DAILY 05/06/23 08/02/23 History calcium carbonate 600 mg calcium 600 mg PO DAILY 05/06/23 08/02/23 History (1,500 mg) tablet (Calcium) calcium polycarbophil 625 mg 1,250 mg PO DAILY 05/06/23 08/02/23 History tablet (FiberCon) famotidine 20 mg tablet 20 mg PO BID #60 tabs 05/06/23 08/02/23 Rx fexofenadine 60 mg tablet (Elysia 60 mg PO Q12H 05/06/23 08/02/23 History Allergy) amitriptyline 10 mg tablet 5 mg PO DAILY 06/10/23 08/02/23 History Patient hx anesthesia problems: none Family hx anesthesia problems: none Results Review: All pre-operative results and documents have been reviewed as part of the pre-operative evaluation. [facility] Past Medical History Medical History Asthma Dyskinesia of esophagus Gastroesophageal reflux disease Hiatal hernia HTN (hypertension) with goal to be determined Hx of diverticulitis of colon Hyperlipidemia Obesity Umbilical hernia Family History Family History Mother Family history of elevated blood lipids Family history of malignant neoplasm of breast in first degree relative Asthma Family history of allergic disorder Father Family history of diabetes mellitus in first degree relative Family history of congestive heart failure Diabetes mellitus Social History Social History Smoking status: Never smoker Second hand tobacco smoke exposure: No Alcohol intake: current Drinks per week: 2 Substance use: never Substance use type: does not use Living arrangements: with family Gender identity (if verbalized by the patient): Female Spiritual care concerns: No Anes - Eval Final PreProcedure Day of Procedure 08/27/23 08:25 Patient weight: obese Heart: regular rate and rhythm Lungs: clear to auscultation Airway: Mallampati scale class II Neurological: alert and oriented Last oral intake: >/= 8 hours ASA classification: III Emergent: no Anesthetic plan: proceed Anesthesia type and monitoring: general GIVS and standard monitoring Results Review: All pre-operative results and documents have been reviewed as part of the pre-operative evaluation. Informed Consent: The patient's anesthetic plan and its attendant risks and benefits were discussed with the patient/family/POA. Questions were solicited and answers provi
--- NOTE | 2023-08-27 08:56 | SUR.OPER ---
EGD START: 848; END: 852. COLONOSCOPY START: 858; END: 910.
[2023-08-27 09:16] VITALS: BP 130/60; PULSE 68; RESP 20; O2SAT 99
[2023-08-27 09:26] VITALS: BP 109/65; PULSE 54; RESP 20; O2SAT 100
[2023-08-27 09:36] VITALS: BP 114/60; PULSE 60; RESP 20; O2SAT 100
== END 2023-08-27 09:53 | disposition home or self-care (01) ==
PROVIDERS: PCP Internal Medicine; Visit Provider Internal Medicine Gastroenterology
PROC: 0DJ08ZZ Inspection of Upper Intestinal Tract, Via Natural or Artificial Opening Endoscopic (ICD-10-PCS; CPT 43235; principal; 2023-08-27 09:00)
DX: Z12.11 Encounter for screening for malignant neoplasm of colon (principal); K57.30 Diverticulosis of large intestine without perforation or abscess without bleeding; K21.00 Gastro-esophageal reflux disease with esophagitis, without bleeding; K29.70 Gastritis, unspecified, without bleeding; K31.9 Disease of stomach and duodenum, unspecified; J45.909 Unspecified asthma, uncomplicated; I10 Essential (primary) hypertension; E78.5 Hyperlipidemia, unspecified; E66.9 Obesity, unspecified; Z68.33 Body mass index [BMI] 33.0-33.9, adult; Z79.51 Long term (current) use of inhaled steroids; Z79.82 Long term (current) use of aspirin; Z90.5 Acquired absence of kidney
CPT/HCPCS: 45378; 43239; 87081; 88305; J2001; J2704; J7120

== ENCOUNTER 2024-01-10 13:29 | Outpatient (CLI) | payer BC, SELFPAY ==
--- NOTE | ~2024-01-10 | XR_ITS ---
3 VIEWS THORACIC SPINE Ordering provider: Janet No MD History: . Thoracic back pain . Comparison: None. FINDINGS: VERTEBRAL BODIES: Normal height and alignment. No visible fracture or subluxation. Degenerative yeh es with marginal osteophytes. DISK SPACES: Narrowing of the disc spaces at multiple levels. SOFT TISSUES: Normal. IMPRESSION: No acute osseous abnormality of the thoracic spine. Reviewed, dictated and finalized at location A.
== END 2024-01-10 13:30 ==
PROVIDERS: PCP Internal Medicine; Visit Provider Internal Medicine
DX: M54.6 Pain in thoracic spine (principal)
CPT/HCPCS: 72072

== ENCOUNTER 2024-04-20 12:49 | Outpatient (CLI) | payer BC, SELFPAY ==
--- NOTE | ~2024-04-20 | MR_ITS ---
EXAMINATION: MR thoracic spine wo con DATE: 04/20/2024 13:21 INDICATION: Thoracic back pain. TECHNIQUE: Magnetic resonance imaging (MRI) of the thoracic spine was performed without intravenous c ontrast. COMPARISON: Thoracic spine radiographs 01/10/2024 FINDINGS: Alignment is normal. There is mild chronic anterior wedging of T5-L1 vertebral bodies. Ther e is a hemangioma in T10 vertebral body. There is moderately decreased disc height at T5-T6, severely decreased disc height from T6-T7 through T8-9-T10, moderately decreased disc height at T10-T11, and mildly decreased disc height at T11-T12. There is a central protrusion at T5-T6 with mild central can al stenosis. There are central extrusions from T6-T7 through T8-T9 with mild central canal stenosis. There are central protrusions at T10-T11 and T11-T12 with mild central canal stenosis. There is multi level mild facet joint osteoarthritis. No neural foraminal stenosis. The spinal cord signal intensity is normal. The conus medullaris is at L1. IMPRESSION: 1. Severe thoracic spondylosis. Reviewed, dictated and finalized at location A.
== END 2024-04-20 12:50 | disposition home or self-care (01) ==
PROVIDERS: PCP Internal Medicine; Visit Provider Nurse Practitioner Family
DX: M47.894 Other spondylosis, thoracic region (principal)
CPT/HCPCS: 72146

== ENCOUNTER 2025-04-12 10:19 | Outpatient (CLI) | payer MEDICARE, SELFPAY ==
--- NOTE | ~2025-04-12 | US_ITS ---
EXAMINATION: US pelvic complete w TV, 04/12/2025 10:27 CDT HISTORY: intra-abd pelvic swelling Comparison: None Technique: Mueller-scale and color Doppler images were obtained. Findings: Uterus: Post hysterectomy. . Right Ovary:Right ovary not identified due to bowel. Left Ovary: Left ovary not identified due to bowel Free Fluid: None Impression: No acute abnormality. Reviewed, dictated and finalized at location P. Impression: No acute abnormality.
== END 2025-04-12 10:20 | disposition home or self-care (01) ==
LOC: GOSHIMG 10:24
PROVIDERS: PCP Physician Assistant; Visit Provider Nurse Practitioner
DX: R19.09 Other intra-abdominal and pelvic swelling, mass and lump (principal)
CPT/HCPCS: 76830; 76856

== ENCOUNTER 2025-04-30 10:14 | Outpatient (CLI) | payer MEDICARE, SELFPAY ==
--- NOTE | ~2025-04-30 | DEXA_ITS ---
Bone Density Report Name: ISABEL MOONEY Age: 65 Sex: Female Ethnicity: White Date of : 1960 Indication: osteopenia; asthma or emphysema; Referring Provider: GEORGE, JAYDA Study: Bone densitometry was performed. Exam Date: April 30, 2025 Accession number: [id number] Bone Density: Region BMD T-score Z-score Classification AP Spine(L1-L4) 0.762 -2.6 -0.8 Osteoporosis Femoral Neck (Left) 0.587 -2.4 -0.8 Osteopenia Total Hip (Left) 0.699 -2.0 -0.8 Osteopenia Femoral Neck (Right) 0.550 -2.7 -1.2 Osteoporosis Total Hip (Right) 0.699 -2.0 -0.8 Osteopenia Total Hip Mean 0.699 -2.0 -0.8 Osteopenia World Health Organization criteria for BMD impression classify patients as: Normal (T-score at or above -1.0), Osteopenia (T-score between -1.0 and -2.5), or Osteoporosis (T-score at or below -2.5). 10-year Fracture Risk: FRAX not reported because: Some T-score for Spine Total or Hip Total or Femoral Neck at or below -2.5 Previous Exams: -- Region Exam Age BMD T-score BMD Change BMD Change Date g/cm2 vs Baseline vs Previous -- AP Spine (L1-L4) 04/30/2025 65 0.762 -2.6 -11.9%* -9.9%* 04/08/2023 63 0.846 -1.8 -2.3% 1.4%# 03/27/2021 61 0.834 -1.9 -3.7%# -0.6% 09/22/2018 58 0.839 -1.9 -3.1%# -3.1%# 03/12/2016 56 0.866 -1.6 Total Hip(Left) 04/30/2025 65 0.699 -2.0 -22.0%* -9.9%* 04/08/2023 63 0.775 -1.4 -13.5%* -9.6%# 03/27/2021 61 0.858 -0.7 -4.3%# 0.6% 09/22/2018 58 0.853 -0.7 -4.8%# -4.8%# 03/12/2016 56 0.896 -0.4 Total Hip(Right) 04/30/2025 65 0.699 -2.0 -14.0%* -11.8%* 04/08/2023 63 0.792 -1.2 -2.6% 0.7%# 03/27/2021 61 0.786 -1.3 -3.3%# -1.2% 09/22/2018 58 0.796 -1.2 -2.1%# -2.1%# 03/12/2016 56 0.813 -1.1 -- *Denotes significance at 95% confidence level, LSC for AP Spine = 0.022 g/cm2, LSC for Total Hip = 0.027 g/cm2 # Denotes dissimilar scan types or analysis methods Clinical Information Provided by Patient: Has used the following medications: Vitamin D, Calcium Has the following medical conditions: Asthma or Emphysema Patient maximum height was 64 Menopause Age: 46 No regular weight bearing exercise Drinks caffeinated beverages Onset of menses at age 12 Number of children 1 Impression: The patient has osteoporosis, based on the Right Femoral Neck T-score. The BMD for the AP Spine (L1-L4) decreased, changing by -9.9% since the last DXA exam. The BMD for the Total Hip(Left) decreased, changing by -9.9% since the last DXA exam. The BMD for the Total Hip(Right) decreased, changing by -11.8% since the last DXA exam. Discussion: INCREASED RISK OF FRACTURE. BONE DENSITY IS UNDESIRABLY LOW AT ONE OR MORE SKELETAL SITES, CONSISTENT WITH POSTMENOPAUSAL OSTEOPOROSIS. This patient's lowest T-score meets the World Health Organization's (WHO) criteria for osteoporosis at one or more sites (T-score -2.5 or below). In untreated patients, the risk of osteoporotic fracture increases approximately two-fold for each 1.0 SD decrease in T-score. Low bone density is not the only risk factor for fracture; also consider factors such as patient's age, frailty or poor health, risk of falling, risk of injury, previous osteoporotic fracture, family history of osteoporosis, cigarette smoking, low body weight, etc. Not everyone with low bone mineral density has osteoporosis; osteomalacia and other metabolic bone disorders should also be considered. Patients who have osteoporosis should be evaluated for specific diseases and conditions (secondary causes) that may cause or contribute to bone loss. The [place] [employer] (AACE) and National Osteoporosis Foundation (NOF) recommend pharmacologic intervention for all postmenopausal women whose T-score is in this range. The patient should follow a healthful lifestyle (good nutrition with adequate calcium and vitamin D, and appropriate weight-bearing exercise). Follow-Up: Consider a repeat BMD and Vertebral Fracture Assessment (VFA) exam in 2 years or sooner if medically necessary, to reassess this patient's status. Reported by: JOSE on 04/30/2025 10:47:00 AM. Reviewed, dictated and finalized at location A.
== END 2025-04-30 10:15 | disposition home or self-care (01) ==
PROVIDERS: PCP Physician Assistant; Visit Provider Nurse Practitioner
DX: Z13.820 Encounter for screening for osteoporosis (principal); Z78.0 Asymptomatic menopausal state; M81.0 Age-related osteoporosis without current pathological fracture; M85.852 Other specified disorders of bone density and structure, left thigh; M85.851 Other specified disorders of bone density and structure, right thigh
CPT/HCPCS: 77080